=== PATIENT | female | born 1975 | race Caucasian/White ===

== ENCOUNTER 2021-09-16 10:56 | Day surgery (SDC) | payer MEDICARE, SELFPAY ==
[2021-09-16] VITALS (7 sets, daily range): BP systolic 90–113; BP diastolic 47–70; PULSE 62–74; RESP 16; TEMP 36.3–37.1; O2SAT 94–95; BMI 41.1
--- NOTE | 2021-09-16 | COLBX_PTH ---
PATIENT: GRICELDA ALCARAZ LOC: EN U#:[id number] AGE/SX: 45/F ROOM: RE09/16/[address]: Dr. Hugo Turcios MD : 1975 BED: DIS: 09/16/2021 SPEC #: [id number] RECD: 09/16/21 13:35 STATUS: MARVEL ARSLAN #: [id number] JOHANN: 09/16/21 00:[address]: Hugo Turcios DEPT: SURGICAL PATHOLOGY RECD BY: Lino Bledsoe ENTERED: 09/17/21 08:42 SP TYPE: COLON BX OTHR DR: Dr. Angelia Euceda MD Tissues: Sigmoid colon biopsy Procedures: Surgery Specimen Level IV HEADER OPERATION: Colonoscopy (MAC) PRE-OP DIAGNOSIS: Screening TISSUE SUBMITTED: Sigmoid colon polyp MICROSCOPIC DIAGNOSIS Sigmoid colon polyp, biopsy: Hyperplastic polyp. AM:babak 09/18/2021 MICROSCOPIC DESCRIPTION Slides are reviewed. GROSS DESCRIPTION Received in fixative is one container labeled with the patient's name and designated sigmoid colon polyp. The specimen consists of one irregular fragment of light callaway soft tissue that measures 0.3 x 0.3 x 0.1 cm. The specimen is totally submitted in one cassette. / SJ:babak 09/17/2021 TC:5 CPT: 29407
[2021-09-16 11:51] LABS: Internal QC Validated? YES +Cl - CLEAR BKGD; Pregnancy, Urine Negative Negative
[2021-09-16] MEDS: Lactated Ringers 1,000 ML 15 ML IV (12:02)
--- NOTE | 2021-09-16 12:26 | HP.PCM_ITS ---
History and Physical Date of Admission: 09/16/21 HISTORY AND PHYSICAL ? Amanda Penaolza 1975 ? REFERRING PHYSICIAN: Angelia Euceda MD ? CHIEF COMPLAINT: No chief complaint on file. ? HPI: The patient is a 45 year old female referred for endoscopy. Amanda notes no colon complaints. Patient denies any change in bowel habits, weight changes, blood in stools, black tarry stools or abdominal pain. Denies family history of colon issues. ? The patient notes no upper GI complaints. ? Amanda has not undergone prior endoscopy. ? Patient's past medical history is significant for bipolar I disorder, depression, diabetes, seizures, asthma, sleep apnea, insomnia. Patient follows with Dr. Euceda in primary care for her chronic medical conditions. ? Patient denies chest pain, shortness of breath or recent hospitalizations. Denies problems with sedation in the past. ? ? PAST MEDICAL HISTORY PAST MEDICAL HISTORY Diagnosis Date ? Allergic rhinitis, cause unspecified ? ? Allergic rhinitis ? Anemia ? ? Bipolar affective disorder (HCC) ? ? Bipolar I disorder, most recent episode (or current) unspecified ? ? Depression ? ? Diabetes (HCC) ? ? Resolved after gastric bypass ? Dysmenorrhea ? ? Dysmetabolic syndrome X ? ? Esophageal reflux ? ? Excessive or frequent menstruation ? ? Heavy periods ? Hypoglycemia, unspecified ? ? Irregular menstrual cycle ? ? Irregular periods ? Myalgia and myositis, unspecified ? ? Narcolepsy 02/25/2010 ? Obesity, unspecified ? ? Obstructive sleep apnea ? ? Other specified disorder of gallbladder ? ? s/p cholecystectomy 2007 ? Rosacea ? ? S/P gastric bypass ? ? Seizures (HCC) ? ? Unspecified asthma(493.90) ? ? Unspecified hypothyroidism ? ? Unspecified sleep apnea ? ? Has had surgery in 2000. ? ? PAST SURGICAL HISTORY PAST SURGICAL HISTORY Procedure Laterality Date ? DELIVERY ONLY ? 2004,2010 ? , low cervical ? ESOPHAGOGASTRODUODENOSCOPY TRANSORAL DIAGNOSTIC ? 05/30/2013 ? EGD ? LAPS SURG CHOLECYSTECTOMY W/CHOLANGIOGRAPHY ? 08/20/06 ? LIG/TRNSXJ FLP TUBE ABDL/VAG APPR UNI/BI ? ? ? Tubal ligation ? NOVASURE ? 01/06/12 ? PAST SURGICAL HISTORY OF ? 2001 ? UVPP nasoseptoplasty ? PAST SURGICAL HISTORY OF ? ? ? knee surgery- left ? PAST SURGICAL HISTORY OF ? 10/2007 ? gastric bypass surgery [place] ? PAST SURGICAL HISTORY OF ? 2000 ? pituitary tumor removed ? TONSILLECTOMY PRIMARY/SECONDARY <AGE 12 ? ? ? T&A ? ? ? CURRENT MEDICATIONS Current Outpatient Medications Medication Sig ? traZODone (DESYREL) 100 mg tablet Take 2 tablets by mouth daily at bedti me. ? sertraline (ZOLOFT) 100 mg tablet Take 2 tablets by mouth once daily. ? LORazepam (ATIVAN) 1 mg tablet Take 0.5 tablets by mouth twice daily as needed for anxiety for up to 90 days. ? lamoTRIgine (LAMICTAL) 200 mg tablet Take 1 tablet by mouth twice daily. ? nystatin (MYCOSTATIN) powder Apply 1 application to affected area four times daily as needed. ? famotidine (PEPCID) 20 mg tablet Take 1 tablet by mouth twice daily. ? dicyclomine (BENTYL) 20 mg tablet Take 1 tablet by mouth three times daily before meals. ? cephALEXin 750 mg capsule Take 1 capsule by mouth twice daily. Take with food (Patient not taking: Reported on 07/23/2021 ) ? pravastatin (PRAVACHOL) 20 mg tablet Take 1 tablet by mouth once daily. ? [START ON 08/16/2021] topiramate (TOPAMAX) 25 mg tablet Take 3 tablets by mouth daily at bedtime. ? modafinil (PROVIGIL) 200 mg tablet Take 1 tablet by mouth every morning. ? polyethylene glycol 3350 (MIRALAX, GLYCOLAX) 17 gram/dose powder Use as directed for Miralax / Gatorade Bowel Prep Kit ? Gatorade Sports Drink Use as directed for Miralax / Gatorade Bowel Prep Kit (Patient not taking: Reported on 07/23/2021 ) ? Bisacodyl (DULCOLAX) 5 mg tab Use as directed for Miralax / Gatorade Bowel Prep Kit ? ondansetron (ZOFRAN) 4 mg tablet Take 1 tablet by mouth every 8 hours as needed for nausea/vomiting. ? montelukast (SINGULAIR) 10 mg tablet Take 1 tablet by mouth daily at bedti me. ? Cholecalciferol, Vitamin D3, 125 mcg (5,000 unit) cap Take 1 capsule by mouth once daily. ? ferrous sulfate 325 mg (65 mg iron) tablet Take 1 tablet by mouth once daily. ? albuterol HFA (PROAIR HFA) 90 mcg/actuation inhaler Inhale 2 Puffs as instructed every 4 hours as needed for Wheezing/Shortness of Breath. ? miconazole (MICONAZOLE 7) 2 % vaginal cream Use 1 Applicator vaginally daily at bedtime. ? cyanocobalamin, vitamin B-12, 5,000 mcg subl Dissolve 1 tablet under the tongue once daily. ? Qcgjvzcb-Ao-Ans-Fe-FA ( VITAMIN) ORAL Tab Take 1 tablet by mouth once daily. ? folic acid 800 mcg ORAL tablet Take three (3) tablets daily. ? No current facility-administered medications for this visit. ? ? ALLERGIES: Adhesive Tape (Rosins), Codeine, Gluten, Ibuprofen, Iodine, Ivory Soap [Other], and Septra [Sulfamethoxazole-Trimethoprim] ? PERSONAL HISTORY: SOCIAL HISTORY Social History ? Tobacco Use ? Smoking status: Never Smoker ? Smokeless tobacco: Never Used Vaping Use ? Vaping Use: Never used Substance Use Topics ? Alcohol use: No ? Drug use: No ? FAMILY HISTORY: FAMILY HISTORY FAMILY HISTORY Problem Relation Age of Onset ? Thyroid Mother ? ? HYPERTHYROID ? Hypertension Mother ? ? Hypertension Sister ? ? Diabetes Maternal Grandmother ? ? Stroke Maternal Grandmother ? ? Heart Maternal Grandmother ? ? Diabetes Maternal Grandfather ? ? Diabetes Paternal Grandmother ? ? Prostate Cancer Paternal Grandfather ? ? Diabetes Paternal Grandfather ? ? Allergies Daughter ? ? Allergies Son ? ? ? REVIEW OF SYMPTOMS: The review of systems data was entered by the nurse and reviewed by me ? Nursing Notes: Ginny Suarez 08/06/2021 2:02 PM Signed REVIEW OF SYSTEMS: General: The patient denies fatigue, denies weight loss, denies weight gain, denies feeling hot, and denies feelings of cold. Eyes: The patient denies glaucoma, denies eye injury/surgery, does not wear glasses or contacts. Ear/Nose/Throat: The patient NOTES allergies, denies hayfever, denies ear infections, and denies bloody noses. Cardiovascular: The patient denies chest pain, denies heart disease, denies high blood pressure,denies cardiac stent, denies prior heart attack, denies irregular heart beat, denies high cholesterol, denies poor circulation, denies heart failure, other cardiac issues, denies claudication, denies cold feet, denies peripheral arterial stent. Respiratory: The patient denies tuberculosis, denies pneumonia, denies frequent cough, denies pulmonary embolism, denies shortness of breath, and denies coughing up blood. Gastrointestinal: The patient denies difficulty swallowing, denies acid reflux, denies ulcers, denies vomiting, denies jaundice/hepatitis, denies gallbladder problems, denies black or tarry stools, denies hemorrhoids, denies bleeding from rectum, denies diverticulitis, denies constipation, denies diarrhea, denies loss of stool control, and denies hernias. Kidney/Bladder: The patient denies kidney stones, denies urine infections, and denies bloody urine. Skin: The patient denies a history of skin cancer, denies bleeding/changing moles, and denies a history of skin rash. Neurologic: The patient denies a history of epilepsy/convulsions, denies headaches, denies head/spinal injuries, and denies stroke/TIA. Psychiatric: The patient denies psychiatric medications, NOTES depression, and denies voices, denies substance abuse. Endocrine: The patient NOTES thyroid disorders, denies diabetes, and denies hormonal problems. Hematologic: The patient denies a history of bruising, denies bleeding, and denies anemia, denies blood clots. Infections: The patient denies a history of measles and mumps, denies rheumatic fever, and denies sexually transmitted diseases. Musculoskeletal: The patient denies back pain/injury, denies back problems, denies sciatica, denies knee/foot trouble, denies arthritis, or denies gout. ? ? When was patient's last Mammogram screening? 07/17/2021 ? Last Colonoscopy: None ? Ginny Suarez I have confirmed and edited as necessary, the PFSH and ROS obtained by others. Marcia Correa PA-C ? PHYSICAL EXAMINATION: ? General: The patient is 45 year old female, well nourished, well hydrated in no acute distress. The patient is oriented to time, place, and person. ? VITALS: Blood pressure 120/80, pulse 96, temperature 37.3 ?C (99.1 ?F), height 157.5 cm (5' 2), weight 103 kg (227 lb), last menstrual period 02/09/2021, SpO2 97 %. There is no height or weight on file to calculate BMI. ? HEENT: Normal cephalic, ataumatic, pupils are equally round, sclera are anicteric, mucous membranes are moist, oropharynx is clear. Neck has no masses, asymmetry or lymphadenopathy. ? Respiratory: Clear to auscultation and percussion. Normal respiratory excursion and pattern. ? Cardiac: Examination is regular rate and rhythm. Normal S1/S2 ? Abdominal exam: Soft, nontender, with no palpable masses. No hepatosplenomegaly. No palpable hernias. ? Extremities: no clubbing, cyanosis or edema. No adenopathy. ? LABORATORY VALUES: As Noted ? RADIOLOGIC STUDIES: As Noted ? ? Assessment IMPRESSION: encounter for screening colonoscopy ? PLAN: I have reviewed my findings with the surgeon. Will plan for lower endoscopy. We discussed the risks and benefits of the planned endoscopy. I have informed the patient that complications can occur including failure to complete the endoscopy and perforation. The patient had the opportunity to ask questions concerning the planned endoscopy. My staff has also explained the procedure to the patient in understandable terms and has given the patient printed material concerning the procedure. The patient freely consents to surgery. ? The patient was offered a surgery/procedure at a [facility] facility. I have counseled the patient regarding the risk of exposure to and/or potential harm posed by the COVID-19 virus with having a surgery/procedure at this time versus the risk of? delaying the surgery/procedure. It is not possible to know either the risk of delaying the surgery or procedure or chance of getting an infection with perfect accuracy, but a joint decision was made between the patient and myself?to proceed at this time with endoscopy. ? ? I plan to use Golytely bowel preparation ? The patient takes prescription medications which I feel decrease the chance of successful sedation, therefore we will plan for procedure to be done under Monitored Anesthetic Care. ? ? ? Diagnoses: (Z12.11) Encounter for screening for malignant neoplasm of colon (p rimary encounter diagnosis) ? Consultation requested by Dr. Euceda for an opinion regarding screening colonoscopy. My final recommendations will be communicated back to the requesting physician by way of shared Medical record or letter to requesting physician via US mail. ? Marcia Correa PA-C I have re-examined the patient. There are no clinical changes since date of exam.
--- NOTE | 2021-09-16 12:57 | OP.COLON_ITS ---
Patient Name: Amanda Penaloza Procedure Date: 09/16/2021 12:24 PM Date of : 1975 Age: 45 Procedure: Colonoscopy Indications: Screening for colorectal malignant neoplasm Providers: Hugo Turcios MD Medicines: See the Anesthesia note for documentation of the administered medications Patient Profile: This is a 45 year old female. Refer to note in patient chart for documentation of history and physical. Last Colonoscopy: none. The patient's first colonoscopy is today. Complications: No immediate complications. Estimated blood loss: Minimal. Procedure: Pre-Anesthesia Assessment: - Prior to the procedure, a History and Physical was performed, and patient medications and allergies were reviewed. The patient's tolerance of previous anesthesia was also reviewed. The risks and benefits of the procedure and the sedation options and risks were discussed with the patient. All questions were answered, and informed consent was obtained. Prior Anticoagulants: The patient has taken no previous anticoagulant or antiplatelet agents. ASA Grade Assessment: III - A patient with severe systemic disease. After reviewing the risks and benefits, the patient was deemed in satisfactory condition to undergo the procedure. After I obtained informed consent, the scope was passed under direct vision. Throughout the procedure, the patient's blood pressure, pulse, and oxygen saturations were monitored continuously. The adult colonoscope was introduced through the anus and advanced to the cecum, identified by appendiceal orifice and ileocecal valve. The colonoscopy was performed without difficulty. The patient tolerated the procedure well. The quality of the bowel preparation was fair. Scope In: 12:31:47 PM Scope Withdrawal Time 0 hours 12 minutes 13 seconds Scope Out: 12:52:38 PM Total Procedure Duration Time 0 hours 20 minutes 51 seconds Findings: The perianal and digital rectal examinations were normal. A small polyp was found in the sigmoid colon. The polyp was sessile. The polyp was removed with a jumbo cold forceps. Resection and retrieval were complete. Non-bleeding internal hemorrhoids were found during retroflexion. The hemorrhoids were mild and small. The exam was otherwise without abnormality. Impression: - Preparation of the colon was fair. - One small polyp in the sigmoid colon, removed with a jumbo cold forceps. Resected and retrieved. - Non-bleeding internal hemorrhoids. - The examination was otherwise normal. Recommendation: - Patient has a contact number available for emergencies. The signs and symptoms of potential delayed complications were discussed with the patient. Return to normal activities tomorrow. Written discharge instructions were provided to the patient. - Resume previous diet. - Continue present medications. - Await pathology results. - Repeat colonoscopy in 5-10 years for surveillance. - Return to physician psych assistant in 1 week. Procedure Code(s): --- Professional --- 34725, Colonoscopy, flexible; with biopsy, single or multiple Diagnosis Code(s): --- Professional --- Z12.11, Encounter for screening for malignant neoplasm of colon K64.8, Other hemorrhoids D12.5, Benign neoplasm of sigmoid colon CPT copyright 2017 [employer]. All rights reserved. The codes documented in this report are preliminary and upon positive printer operator review may be revised to meet current compliance requirements. MD Hugo Madsen MD 09/16/2021 12:56:39 PM This report has been signed electronically. Number of Addenda: 0 Note Initiated On: 09/16/2021 12:24 PM
--- NOTE | 2021-09-16 12:57 | OP.CCLET_ITS ---
09/16/2021 Angelia Euceda [address] [place] [address] Re : Colonoscopy procedure for Amanda Penaloza Dear Dr. Euceda This procedure was performed on Thursday, September 16, 2021. My impressions and recommendations are as follows: Impressions : - Preparation of the colon was fair. - One small polyp in the sigmoid colon, removed with a jumbo cold forceps. Resected and retrieved. - Non-bleeding internal hemorrhoids. - The examination was otherwise normal. Recommendations : - Patient has a contact number available for emergencies. The signs and symptoms of potential delayed complications were discussed with the patient. Return to normal activities tomorrow. Written discharge instructions were provided to the patient. - Resume previous diet. - Continue present medications. - Await pathology results. - Repeat colonoscopy in 5-10 years for surveillance. - Return to physician transition assistant in 1 week. My findings are described in the full procedure note, which is enclosed. If I can be of further assistance, please feel free to contact me at Doctor phone number(s): , Work: . Sincerely, MD Hugo Madsen MD 09/16/2021 12:56:39 PM This report has been signed electronically.
== END 2021-09-16 13:54 | disposition home or self-care (01) ==
LOC: EN 11:03 → AC 11:04
PROVIDERS: Anesthesiology; PCP Internal Medicine; Referring Provider Internal Medicine; Visit Provider Surgery
PROC: 0DJD8ZZ Inspection of Lower Intestinal Tract, Via Natural or Artificial Opening Endoscopic (ICD-10-PCS; CPT 45378; principal; 2021-09-16 12:25)
DX: Z12.11 Encounter for screening for malignant neoplasm of colon (principal); F31.9 Bipolar disorder, unspecified; K63.5 Polyp of colon; K64.8 Other hemorrhoids; G47.30 Sleep apnea, unspecified; Z79.899 Other long term (current) drug therapy
CPT/HCPCS: 45380; 81025; 88305; J7120; J2405

== ENCOUNTER → 2022-02-04 | Outpatient (CLI) | payer MEDICARE, SELFPAY ==
[2022-02-04 15:56] LABS: Bacteria 0 SEEN /hpf (None Seen); Mucous, Urine 0 SEEN /hpf (<or=2+); Red Blood Cells-Urine 0 SEEN /hpf (0-5); White Blood Cells 0 SEEN /hpf (0-5)
[2022-02-04 16:43] LABS: Color, Urine Yellow (Yellow); Glucose, Dipstick Normal (Normal); Ketone-Dipstick Negative (Negative); Leukocyte Esterase-Dipstick Negative /ul (Negative); Nitrite-Dipstick Negative (Negative); Occult Blood-Urine Negative /ul (Negative); Protein-Dipstick Negative (Negative); Urine Bilirubin Dipstick Negative (Negative); Urine Clarity Clear (Clear); Urine Urobilinogen Normal (Normal); Urine pH 6.5 (5.0 - 8.0)
[2022-02-04 18:53] LABS: Squamous Epithelial Cells - UA 0-5 SEEN /hpf (5-10)
== END | disposition home or self-care (01) ==
LOC: LABSPEC 15:27
PROVIDERS: PCP Internal Medicine; Visit Provider Physician Assistant Surgical
DX: N39.0 Urinary tract infection, site not specified (principal)
CPT/HCPCS: 81001; 87086; 87088